=== PATIENT | female | born 1970 | race Two or more races ===

== ENCOUNTER 2018-01-28 14:48 | Outpatient (CLI) | payer OTHER | END 2018-01-28 14:58 | disposition home or self-care (01) | LOC: MAMO-SONO 14:48 | DX: Z12.31 Encounter for screening mammogram for malignant neoplasm of breast (principal); N60.11 Diffuse cystic mastopathy of right breast; N60.12 Diffuse cystic mastopathy of left breast ==

== ENCOUNTER 2019-03-24 14:58 | Outpatient (CLI) | payer OTHER | END 2019-03-24 15:00 | disposition home or self-care (01) | LOC: MAMO-SONO 14:58 | DX: N61.1 Abscess of the breast and nipple (principal) ==

== ENCOUNTER 2019-09-22 08:10 | Outpatient (CLI) | payer OTHER | END 2019-09-22 08:34 | disposition home or self-care (01) | LOC: LAB 08:10 | PROVIDERS: ATTEND Internal Medicine Hematology & Oncology | DX: D50.8 Other iron deficiency anemias (principal); I10 Essential (primary) hypertension; D55.0 Anemia due to glucose-6-phosphate dehydrogenase [G6PD] deficiency; E55.9 Vitamin D deficiency, unspecified; D51.1 Vitamin B12 deficiency anemia due to selective vitamin B12 malabsorption with proteinuria; D51.0 Vitamin B12 deficiency anemia due to intrinsic factor deficiency; E03.8 Other specified hypothyroidism; E06.3 Autoimmune thyroiditis; D72.818 Other decreased white blood cell count ==

== ENCOUNTER 2020-01-19 06:49 | Outpatient (CLI) | payer OTHER | END 2020-01-19 07:03 | disposition home or self-care (01) | LOC: LAB 06:49 | PROVIDERS: ATTEND Internal Medicine Hematology & Oncology | DX: D50.8 Other iron deficiency anemias (principal); I10 Essential (primary) hypertension; D72.818 Other decreased white blood cell count; E06.3 Autoimmune thyroiditis ==

== ENCOUNTER → 2020-04-05 | Outpatient (CLI) | payer OTHER | END | disposition home or self-care (01) | LOC: PPH VACUNA | DX: Z23 Encounter for immunization (principal) ==

== ENCOUNTER 2020-05-10 14:58 | Outpatient (CLI) | payer OTHER | END 2020-05-10 15:16 | disposition home or self-care (01) | LOC: MAMO-SONO 14:58 | PROVIDERS: ATTEND Specialist | DX: Z12.31 Encounter for screening mammogram for malignant neoplasm of breast (principal); N64.59 Other signs and symptoms in breast ==

== ENCOUNTER 2020-10-18 06:41 | Outpatient (CLI) | payer OTHER | END 2020-10-18 06:42 | disposition home or self-care (01) | LOC: LAB 06:41 | PROVIDERS: ATTEND Internal Medicine Hematology & Oncology | DX: D50.8 Other iron deficiency anemias (principal); I10 Essential (primary) hypertension; R74.02 Elevation of levels of lactic acid dehydrogenase [LDH]; K76.89 Other specified diseases of liver; D51.8 Other vitamin B12 deficiency anemias; E03.8 Other specified hypothyroidism; D72.818 Other decreased white blood cell count; E06.3 Autoimmune thyroiditis; D51.3 Other dietary vitamin B12 deficiency anemia ==

== ENCOUNTER 2021-01-09 08:00 | Outpatient (CLI) | payer OTHER | END 2021-01-09 08:30 | disposition home or self-care (01) | LOC: PPH VACUNA 08:00 | PROVIDERS: ATTEND Emergency Medicine Pediatric Emergency Medicine | DX: Z23 Encounter for immunization (principal) ==

== ENCOUNTER 2021-06-11 14:41 | Outpatient (CLI) | payer OTHER | END 2021-06-11 15:02 | disposition home or self-care (01) | LOC: MAMO-SONO 14:41 | PROVIDERS: ATTEND Pathology Anatomic Pathology & Clinical Pathology | DX: E04.2 Nontoxic multinodular goiter (principal); D72.818 Other decreased white blood cell count; E06.3 Autoimmune thyroiditis; D51.3 Other dietary vitamin B12 deficiency anemia; N60.11 Diffuse cystic mastopathy of right breast; N60.12 Diffuse cystic mastopathy of left breast ==

== ENCOUNTER → 2021-06-18 06:55 | Outpatient (CLI) | payer OTHER | END | disposition home or self-care (01) | LOC: LAB 06:55 | PROVIDERS: ATTEND Internal Medicine Hematology & Oncology | DX: D50.8 Other iron deficiency anemias (principal); R79.9 Abnormal finding of blood chemistry, unspecified; I10 Essential (primary) hypertension; R74.02 Elevation of levels of lactic acid dehydrogenase [LDH]; K76.89 Other specified diseases of liver ==

== ENCOUNTER 2022-02-25 16:07 | Outpatient (CLI) | payer OTHER | END 2022-02-25 16:16 | disposition home or self-care (01) | LOC: RAD 16:07 | PROVIDERS: ATTEND Chiropractor | DX: M99.01 Segmental and somatic dysfunction of cervical region (principal); M99.02 Segmental and somatic dysfunction of thoracic region; M99.03 Segmental and somatic dysfunction of lumbar region ==

== ENCOUNTER 2022-03-20 15:07 | Outpatient (CLI) | payer OTHER | END 2022-03-20 15:20 | disposition home or self-care (01) | LOC: MRI 15:07 | PROVIDERS: ATTEND Physical Medicine & Rehabilitation | DX: M54.50 Low back pain, unspecified (principal) | CPT/HCPCS: 72148 ==

== ENCOUNTER → 2022-05-27 06:44 | Outpatient (CLI) | payer OTHER | END | disposition home or self-care (01) | LOC: LAB 06:44 | PROVIDERS: ATTEND Internal Medicine Hematology & Oncology | DX: D50.8 Other iron deficiency anemias (principal); R79.9 Abnormal finding of blood chemistry, unspecified; I10 Essential (primary) hypertension; R74.02 Elevation of levels of lactic acid dehydrogenase [LDH]; K76.89 Other specified diseases of liver; D51.8 Other vitamin B12 deficiency anemias; E03.8 Other specified hypothyroidism; E06.3 Autoimmune thyroiditis; D72.818 Other decreased white blood cell count; D51.1 Vitamin B12 deficiency anemia due to selective vitamin B12 malabsorption with proteinuria; D51.3 Other dietary vitamin B12 deficiency anemia ==

== ENCOUNTER 2022-05-29 14:21 | Outpatient (CLI) | payer OTHER | END 2022-05-29 14:28 | disposition home or self-care (01) | LOC: SONOGRAMA 14:21 | PROVIDERS: ATTEND Internal Medicine Hematology & Oncology | DX: E06.3 Autoimmune thyroiditis (principal); D51.1 Vitamin B12 deficiency anemia due to selective vitamin B12 malabsorption with proteinuria; D51.3 Other dietary vitamin B12 deficiency anemia; D72.818 Other decreased white blood cell count ==

== ENCOUNTER 2022-06-24 08:58 | Outpatient (CLI) | payer OTHER | END 2022-06-24 09:14 | disposition home or self-care (01) | LOC: MAMO-SONO 08:58 | PROVIDERS: ATTEND Pathology Anatomic Pathology & Clinical Pathology | DX: N60.11 Diffuse cystic mastopathy of right breast (principal); N60.12 Diffuse cystic mastopathy of left breast ==

== ENCOUNTER 2022-12-05 07:08 | Outpatient (CLI) | payer OTHER | END 2022-12-05 14:01 | disposition home or self-care (01) | LOC: SONOGRAMA 07:08 | DX: R10.84 Generalized abdominal pain (principal); Z90.49 Acquired absence of other specified parts of digestive tract ==

== ENCOUNTER → 2022-12-25 06:29 | Outpatient (CLI) | payer OTHER ==
[2022-12-25 08:40] LABS: HEMATOCRIT 33.1 % (36.0-45.00); HEMOGLOBIN 10.8 g/dL (12.0-15.00); MEAN CORPUSCULAR HEMOGLOBIN 26.6 pg (27.00-32.0); MEAN CORPUSCULAR HGB CONC 32.8 g/dl (32.0-36.0); PLATELET COUNT 294 K/uL (150-450); RED BLOOD COUNT 4.08 M/uL (4.00-6.00); RED CELL DISTRIBUTION WIDTH 14.2 % (11.5-14.5)
[2022-12-25 08:48] LABS: ALBUMIN 3.6 gm/dL (3.4-5.0); BILIRUBIN TOTAL 0.41 mg/dL (0.3-1.2); CALCIUM 8.4 mg/dL (8.5-10.1); CREATININE SERUM 0.72 mg/dL (0.55-1.02); GFR 85.06; GLOBULINA 3.1 G/DL (2.4-3.5); POTASSIUM 4.05 mEq/L (3.5-5.1); TOTAL PROTEIN 6.7 gm/dL (6.4-8.2)
[2022-12-25 09:21] LABS: FOLIC ACID 16.23 ng/ml (4.78-20); VITAMIN D3 25 HYDROXY 72.73 ng/ml (30-120)
== END | disposition home or self-care (01) ==
LOC: LAB 06:29
PROVIDERS: ATTEND Internal Medicine Hematology & Oncology
DX: D72.818 Other decreased white blood cell count (principal); E06.3 Autoimmune thyroiditis; D51.1 Vitamin B12 deficiency anemia due to selective vitamin B12 malabsorption with proteinuria; D51.3 Other dietary vitamin B12 deficiency anemia; D50.8 Other iron deficiency anemias; R79.9 Abnormal finding of blood chemistry, unspecified; I10 Essential (primary) hypertension; R74.02 Elevation of levels of lactic acid dehydrogenase [LDH]; K76.89 Other specified diseases of liver; E03.8 Other specified hypothyroidism; E55.9 Vitamin D deficiency, unspecified; C50.919 Malignant neoplasm of unspecified site of unspecified female breast; R97.8 Other abnormal tumor markers; C25.9 Malignant neoplasm of pancreas, unspecified; C56.9 Malignant neoplasm of unspecified ovary; R97.1 Elevated cancer antigen 125 [CA 125]; R97.0 Elevated carcinoembryonic antigen [CEA]

== ENCOUNTER 2023-05-07 07:07 | Outpatient (CLI) | payer OTHER ==
[2023-05-07 08:03] LABS: HEMATOCRIT 36.6 % (36.0-45.00); HEMOGLOBIN 12.6 g/dL (12.0-15.00); MEAN CELL VOLUME 80.4 fL (80.00-100.00); MEAN CORPUSCULAR HEMOGLOBIN 27.7 pg (27.00-32.0); MEAN CORPUSCULAR HGB CONC 34.4 g/dl (32.0-36.0); PLATELET COUNT 324 K/uL (150-450); RED BLOOD COUNT 4.55 M/uL (4.00-6.00); RED CELL DISTRIBUTION WIDTH 13.8 % (11.5-14.5)
[2023-05-07 08:30] LABS: BILIRUBIN TOTAL 0.49 mg/dL (0.3-1.2); CALCIUM 9.5 mg/dL (8.5-10.1); CREATININE SERUM 0.74 mg/dL (0.55-1.02); GFR 82.09; GLOBULINA 3.2 G/DL (2.4-3.5); POTASSIUM 4.54 mEq/L (3.5-5.1); TOTAL PROTEIN 7.2 gm/dL (6.4-8.2)
[2023-05-07 09:28] LABS: MANUAL PLATELET COUNT 368
[2023-05-07 09:30] LABS: PLATELET ESTIMATE NORMAL (NORMAL)
[2023-05-08 16:07] LABS: hgb a 97.7 % (96.4-98.8); hgb a2 2.3 % (1.8-3.2); hgb f 0 % (0.0-2.0); hgb s 0 % (0.0)
== END 2023-05-07 07:08 | disposition home or self-care (01) ==
LOC: LAB 07:07
PROVIDERS: ATTEND Internal Medicine Hematology & Oncology
DX: D50.8 Other iron deficiency anemias (principal); I10 Essential (primary) hypertension; D63.8 Anemia in other chronic diseases classified elsewhere; D56.9 Thalassemia, unspecified

== ENCOUNTER 2023-11-26 06:58 | Outpatient (CLI) | payer OTHER ==
[2023-11-26 07:42] LABS: HEMATOCRIT 35.6 % (36.0-45.00); HEMOGLOBIN 11.9 g/dL (12.0-15.00); MEAN CORPUSCULAR HGB CONC 33.4 g/dl (32.0-36.0); PLATELET COUNT 280 K/uL (150-450); RED CELL DISTRIBUTION WIDTH 14.1 % (11.5-14.5)
[2023-11-26 08:32] LABS: BILIRUBIN TOTAL 0.57 mg/dL (0.3-1.2); CALCIUM 9.1 mg/dL (8.5-10.1); CREATININE SERUM 0.84 mg/dL (0.55-1.02); FERRITIN 109.9 NG/ML (8-252); GFR 70.92; GLOBULINA 3.1 G/DL (2.4-3.5); POTASSIUM 4.43 mEq/L (3.5-5.1); T4 FREE 0.92 NG/ML (0.76-1.46); TOTAL PROTEIN 7.1 gm/dL (6.4-8.2); TSH 1.64 uIU/mL (0.358-3.74)
[2023-11-26 12:12] LABS: MANUAL PLATELET COUNT 596
[2023-11-26 12:13] LABS: PLATELET ESTIMATE INCREASED (NORMAL)
[2023-11-27 12:10] LABS: FOLIC ACID 19.49 ng/ml (4.78-20)
[2023-11-30 15:09] LABS: INTRINSIC FACTOR BLOCKING AB 0.9 AU/mL (0.0-1.1)
[2023-12-01 15:05] LABS: PARIETAL CELL ANTIBODIES 2.2 Units (0.0-20.0)
== END 2023-11-26 07:05 | disposition home or self-care (01) ==
LOC: LAB 06:58
PROVIDERS: ATTEND Internal Medicine Hematology & Oncology
DX: D72.818 Other decreased white blood cell count (principal); D50.8 Other iron deficiency anemias; E06.3 Autoimmune thyroiditis; D51.1 Vitamin B12 deficiency anemia due to selective vitamin B12 malabsorption with proteinuria; D51.3 Other dietary vitamin B12 deficiency anemia; R79.9 Abnormal finding of blood chemistry, unspecified; R74.02 Elevation of levels of lactic acid dehydrogenase [LDH]; I10 Essential (primary) hypertension; K76.89 Other specified diseases of liver; E03.8 Other specified hypothyroidism

== ENCOUNTER 2023-11-26 07:51 | Outpatient (CLI) | payer OTHER | END 2023-11-26 08:02 | disposition home or self-care (01) | LOC: SONOGRAMA 07:51 | PROVIDERS: ATTEND Internal Medicine Hematology & Oncology | DX: D72.818 Other decreased white blood cell count (principal); D50.8 Other iron deficiency anemias; E06.3 Autoimmune thyroiditis; D51.1 Vitamin B12 deficiency anemia due to selective vitamin B12 malabsorption with proteinuria; D51.3 Other dietary vitamin B12 deficiency anemia; E04.2 Nontoxic multinodular goiter ==

== ENCOUNTER → 2024-05-10 06:06 | Outpatient (CLI) | payer OTHER ==
[2024-05-10 07:37] LABS: HEMATOCRIT 31.3 % (36.0-45.00); HEMOGLOBIN 11.2 g/dL (12.0-15.00); MEAN CELL VOLUME 79.7 fL (80.00-100.00); MEAN CORPUSCULAR HEMOGLOBIN 28.4 pg (27.00-32.0); MEAN CORPUSCULAR HGB CONC 35.7 g/dl (32.0-36.0); PLATELET COUNT 262 K/uL (150-450); RED BLOOD COUNT 3.93 M/uL (4.00-6.00); RED CELL DISTRIBUTION WIDTH 13.6 % (11.5-14.5)
[2024-05-10 08:35] LABS: % SATURACION 31.6 % (15-50); ALBUMIN 3.7 gm/dL (3.4-5.0); BILIRUBIN TOTAL 0.29 mg/dL (0.3-1.2); CALCIUM 8.9 mg/dL (8.5-10.1); CREATININE SERUM 0.67 mg/dL (0.55-1.02); FERRITIN 100.9 NG/ML (8-252); GFR 91.72; GLOBULINA 2.6 G/DL (2.4-3.5); POTASSIUM 4.09 mEq/L (3.5-5.1); TOTAL PROTEIN 6.3 gm/dL (6.4-8.2)
[2024-05-10 08:57] LABS: MANUAL PLATELET COUNT 440
[2024-05-10 08:59] LABS: PLATELET ESTIMATE NORMAL (NORMAL)
[2024-05-10 11:23] LABS: FOLIC ACID 18.09 ng/ml (4.78-20)
== END | disposition home or self-care (01) ==
LOC: LAB 06:06
PROVIDERS: ATTEND Internal Medicine Hematology & Oncology
DX: D50.8 Other iron deficiency anemias (principal); D72.818 Other decreased white blood cell count; E06.3 Autoimmune thyroiditis; D51.1 Vitamin B12 deficiency anemia due to selective vitamin B12 malabsorption with proteinuria; D51.3 Other dietary vitamin B12 deficiency anemia; I10 Essential (primary) hypertension; R74.02 Elevation of levels of lactic acid dehydrogenase [LDH]; K76.89 Other specified diseases of liver; R79.9 Abnormal finding of blood chemistry, unspecified

== ENCOUNTER 2024-08-31 06:15 | Outpatient (CLI) | payer OTHER ==
[2024-08-31 07:14] LABS: BASO % 1.8 % (0.1-1.2); EOS # 0.13 (0.04-0.54); EOS % 4.6 % (0.7-7.0); HEMATOCRIT 33.1 % (34.1-44.9); LYMPH # 1.39 (1.18-3.74); LYMPH % 49.3 % (19.3-53.1); MEAN CORPUSCULAR HEMOGLOBIN 27.2 pg (25.6-32.2); MONO # 0.24 (0.24-0.82); MONO % 8.5 % (4.7-12.5); NEUT # 1.01 (1.56-6.13); NEUT % 35.8 % (34.0-71.1); PLATELET COUNT 283 K/uL (163-369); RED BLOOD COUNT 4.04 M/uL (3.93-5.22); RED CELL DISTRIBUTION WIDTH 13.3 % (11.6-14.4)
[2024-08-31 07:28] LABS: PH,URINE 5.5 (5.0-8.0); URINE APPEARANCE Clear; URINE BILIRRUBIN Negative (NEGATIVE); URINE BLOOD Negative; URINE COLOR Yellow; URINE GLUCOSE Negative (NEGATIVE); URINE KETONE Negative (NEGATIVE); URINE LEUKOCYTE Moderate; URINE NITRATE Negative; URINE PROTEIN Negative (NEGATIVE); URINE UROBILINOGEN 0.2 E.U./dl
[2024-08-31 07:33] LABS: URINE BACTERIA 182.3 uL (0.0-1933); URINE EPITHELIAL CELLS 42.4 uL (0.0-38.8); URINE RBC 6.3 uL (0.0-20.8); URINE WBC 81.6 uL (0.0-23.2)
[2024-08-31 08:38] LABS: ALBUMIN 3.7 gm/dL (3.4-5.0); BILIRUBIN TOTAL 0.42 mg/dL (0.3-1.2); CALCIUM 8.7 mg/dL (8.5-10.1); CHOL HDL RATIO 2.5 (0-5.0); CREATININE SERUM 0.78 mg/dL (0.55-1.02); GFR 76.96; POTASSIUM 4.29 mEq/L (3.5-5.1); T4 FREE 0.92 NG/ML (0.76-1.46); TOTAL PROTEIN 6.7 gm/dL (6.4-8.2); TSH 1.68 uIU/mL (0.358-3.74)
[2024-08-31 19:24] LABS: FREE TRIODOTIRONINE 3.06 pg/ml (2.18-3.98)
== END 2024-08-31 06:23 | disposition home or self-care (01) ==
LOC: LAB 06:15
PROVIDERS: ATTEND Internal Medicine Hematology & Oncology
DX: E16.2 Hypoglycemia, unspecified (principal); N39.0 Urinary tract infection, site not specified; E78.2 Mixed hyperlipidemia; E56.9 Vitamin deficiency, unspecified; E55.9 Vitamin D deficiency, unspecified; E03.9 Hypothyroidism, unspecified; R97.1 Elevated cancer antigen 125 [CA 125]; R53.1 Weakness; E66.01 Morbid (severe) obesity due to excess calories; Z11.3 Encounter for screening for infections with a predominantly sexual mode of transmission; D50.8 Other iron deficiency anemias; R79.9 Abnormal finding of blood chemistry, unspecified; I10 Essential (primary) hypertension; R74.02 Elevation of levels of lactic acid dehydrogenase [LDH]; K76.89 Other specified diseases of liver; R80.9 Proteinuria, unspecified; R94.4 Abnormal results of kidney function studies; D72.818 Other decreased white blood cell count; D51.1 Vitamin B12 deficiency anemia due to selective vitamin B12 malabsorption with proteinuria; D51.3 Other dietary vitamin B12 deficiency anemia

== ENCOUNTER 2024-09-01 13:00 | Outpatient (CLI) | payer OTHER | END 2024-09-01 13:24 | disposition home or self-care (01) | LOC: MAMO-SONO 13:00 | PROVIDERS: ATTEND Obstetrics & Gynecology | DX: N64.4 Mastodynia (principal); N63.0 Unspecified lump in unspecified breast; Z12.31 Encounter for screening mammogram for malignant neoplasm of breast ==

== ENCOUNTER 2024-10-12 11:35 | Outpatient (CLI) | payer OTHER | END 2024-10-12 11:36 | disposition home or self-care (01) | LOC: NUCLEAR 11:35 | PROVIDERS: ATTEND Obstetrics & Gynecology | DX: M81.0 Age-related osteoporosis without current pathological fracture (principal) ==

== ENCOUNTER 2024-10-20 07:03 | Outpatient (CLI) | payer OTHER | END 2024-10-20 07:12 | disposition home or self-care (01) | LOC: RAD 07:03 | PROVIDERS: ATTEND Physical Medicine & Rehabilitation | DX: M25.511 Pain in right shoulder (principal) ==

== ENCOUNTER 2025-01-18 06:11 | Outpatient (CLI) | payer OTHER ==
[2025-01-18 07:03] LABS: BASO % 1.2 % (0.1-1.2); EOS # 0.33 (0.04-0.54); EOS % 9.8 % (0.7-7.0); LYMPH # 1.45 (1.18-3.74); LYMPH % 43.2 % (19.3-53.1); MEAN PLATELET VOLUME 9.20 fl (9.4-12.4); MONO # 0.24 (0.24-0.82); MONO % 7.1 % (4.7-12.5); NEUT # 1.30 (1.56-6.13); NEUT % 38.7 % (34.0-71.1); RED CELL DISTRIBUTION WIDTH 13.3 % (11.6-14.4)
[2025-01-18 07:50] LABS: ALT/SGPT 28.0 U/L (12-78); AST/SGOT 20.0 U/L (15-37); BILIRUBIN TOTAL 0.42 mg/dL (0.3-1.2); BUN CREA RATIO 21.0 (7.0-25.0); CREATININE SERUM 0.73 mg/dL (0.55-1.02); FE 82.0 ug/dl (50-170); GFR 83.08; GLOBULINA 2.6 G/DL (2.4-3.5); GLUCOSE FASTING 97.0 mg/dL (65-100); LDH 184.0 U/L (84-246); OSMOLALITY SERUM 284.0 MOSM/KG (275-295)
[2025-01-18 11:39] LABS: FOLIC ACID > 20.00 ng/ml (4.78-20)
== END 2025-01-18 06:22 | disposition home or self-care (01) ==
LOC: LAB 06:11
PROVIDERS: ATTEND Internal Medicine Hematology & Oncology
DX: D72.818 Other decreased white blood cell count (principal); D50.8 Other iron deficiency anemias; E06.3 Autoimmune thyroiditis; D51.1 Vitamin B12 deficiency anemia due to selective vitamin B12 malabsorption with proteinuria; D51.3 Other dietary vitamin B12 deficiency anemia; I10 Essential (primary) hypertension; R74.02 Elevation of levels of lactic acid dehydrogenase [LDH]; K76.89 Other specified diseases of liver; R79.9 Abnormal finding of blood chemistry, unspecified; D63.1 Anemia in chronic kidney disease

== ENCOUNTER 2025-01-24 06:04 | Outpatient (CLI) | payer OTHER ==
[2025-01-24 08:14] LABS: URINE PROT QUANT 24 HR 148.75 MG/24HR (42-225); URINE PROT QUANT 24HR < 5.00 MG/DL
[2025-01-24 08:22] LABS: CREATINE CLEARANCE 78.3 ML/MIN (97-137); CREATININE SERUM 0.69 mg/dL (0.6-1.0)
== END 2025-01-24 06:06 | disposition home or self-care (01) ==
LOC: LAB 06:04
PROVIDERS: ATTEND Internal Medicine Hematology & Oncology
DX: D50.8 Other iron deficiency anemias (principal); D72.818 Other decreased white blood cell count; E06.3 Autoimmune thyroiditis; D51.1 Vitamin B12 deficiency anemia due to selective vitamin B12 malabsorption with proteinuria; D51.3 Other dietary vitamin B12 deficiency anemia; I10 Essential (primary) hypertension; R74.02 Elevation of levels of lactic acid dehydrogenase [LDH]; K76.89 Other specified diseases of liver

== ENCOUNTER 2025-03-01 07:08 | Outpatient (CLI) | payer OTHER | END 2025-03-01 07:21 | disposition home or self-care (01) | LOC: SONOGRAMA 07:08 | DX: M25.511 Pain in right shoulder (principal) ==